=== PATIENT | male | born 1980 | race Caucasian/White ===

== ENCOUNTER 2018-02-27 15:18 | Emergency (ER) | payer BC, SELFPAY ==
[2018-02-27 15:20] VITALS: BP 139/73; PULSE 69; RESP 15; TEMP 36.7; O2SAT 97; BMI 25.7
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
[2018-02-27] MEDS: Ibuprofen 600 MG Tablet PO (16:15)
== END 2018-02-27 16:23 | disposition home or self-care (01) ==
PROVIDERS: Emergency Provider Emergency Medicine
DX: S39.012A Strain of muscle, fascia and tendon of lower back, initial encounter (principal); V89.2XXA Person injured in unspecified motor-vehicle accident, traffic, initial encounter; Y93.9 Activity, unspecified; Y92.9 Unspecified place or not applicable
CPT/HCPCS: 72100; 99283